=== PATIENT | male | born 1980 | race Hispanic/Latino ===

== ENCOUNTER 2021-08-31 08:09 | Outpatient (CLI) | payer BC | END 2021-08-31 08:10 | disposition home or self-care (01) | LOC: BICULT 08:09 | PROVIDERS: ATTEND Internal Medicine | DX: R79.89 Other specified abnormal findings of blood chemistry (principal); R10.32 Left lower quadrant pain; R93.2 Abnormal findings on diagnostic imaging of liver and biliary tract | CPT/HCPCS: 76705 ==